=== PATIENT | female | born 1970 | race Caucasian/White ===

== ENCOUNTER 2017-10-08 00:11 | Inpatient (IN) | payer OTHER ==
[~2017-10-08] VITALS: Ht 160 cm; Wt 72.6 kg
[2017-10-08] VITALS (11 sets, daily range): BP systolic 102–139; BP diastolic 54–89
[~2017-10-08 00:11] MED LIST: CALC1TAB32 PO; HYDR12.561 PO; POTA-23 PO; VITA1CAP46 PO
[2017-10-08] MEDS ORDERED: DEXAMETHASONE SOD 4 MG/ML VIAL ONE (10:32)
[2017-10-08] MEDS ORDERED: THROMBIN (BOVINE) 20,000 UNIT VIAL ONE (10:33)
[2017-10-08 13:32] LABS: PLATELET COUNT, AUTOMATED 339 K/uL (150-450)
[2017-10-08] MEDS ORDERED: LIDOCAINE/SOD BICARB 8.4% SYR ID ONE (14:30)
[2017-10-08] MEDS ORDERED: MIDAZOLAM 2 MG/2 ML VIAL IVP PRN (14:30)
[2017-10-08] MEDS ORDERED: FAMOTIDINE 20 MG TAB PO ONE (14:30)
[2017-10-08] MEDS ORDERED: CLINDAMYCIN(*) 900 MG/NS 50 ML 50 ML IVPB ONE (14:30)
[2017-10-08] MEDS ORDERED: NORMOSOL R SOLN(*) 1000 ML BAG 1,000 ML IV PRN (14:30)
[2017-10-08] MEDS ORDERED: PROPOFOL EMUL(*) 10MG/ML 20 ML 60 ML ONE ×2 (15:54→16:38)
[2017-10-08] MEDS ORDERED: SUCCINYLCHOL CHL 200MG/10ML VL ONE (15:54)
[2017-10-08] MEDS ORDERED: fentaNYL CITR 250 MCG/5 ML AMP ONE (15:54)
[2017-10-08] MEDS ORDERED: LABETALOL HCL 100 MG/20ML VIAL ONE (16:24)
[2017-10-08] MEDS ORDERED: fentaNYL CITR 100 MCG/2 ML AMP ONE ×3 (17:33→18:56)
[2017-10-08] MEDS ORDERED: PROPOFOL EMUL(*) 10MG/ML 20 ML 40 ML ONE (17:44)
[2017-10-08] MEDS ORDERED: ONDANSETRON 4 MG/2 ML VIAL ONE (18:13)
[2017-10-08] MEDS ORDERED: HYDROmorphone HCL 2 MG/ML SDV IVP PRN (18:50)
[2017-10-08] MEDS ORDERED: MAGNESIUM HYDROXIDE* 30ML UDCP PO PRN (18:50)
[2017-10-08] MEDS ORDERED: BENZOCAINE/MENTHOL 1 EACH LOZG PO PRN (18:50)
[2017-10-08] MEDS ORDERED: ONDANSETRON 4 MG/2 ML VIAL IVP PRN (18:50)
[2017-10-08] MEDS ORDERED: ACETAMINOPHEN(*)1000 MG/100 ML 100 ML IVPB PRN (18:50)
[2017-10-08] MEDS ORDERED: oxyCODONE HCL 5 MG CAP PO PRN (18:50)
[2017-10-08] MEDS ORDERED: FLUSH 10 ML SYR IVP PRN (18:50)
[2017-10-08] MEDS ORDERED: diphenhydrAMINE 25 MG CAP PO PRN (18:50)
[2017-10-08] MEDS ORDERED: ACETAMINOPHEN 500 MG TAB PO PRN (18:50)
[2017-10-08] MEDS ORDERED: APAP/HYDROCODONE 325/5 TAB PO PRN (18:50)
[2017-10-08] MEDS ORDERED: DIAZEPAM 5 MG TAB PO PRN (18:50)
[2017-10-08] MEDS ORDERED: BISACODYL 10 MG SUPP PR PRN (18:50)
[2017-10-08] MEDS ORDERED: LR(*) 1000 ML BAG 1,000 ML IV PRN (18:50)
--- NOTE | 2017-10-08 19:28 | RADIOLOGY IMAGING REPORT ---
FACILITY: [facility] PATIENT NAME: Irais Caldera : 1970 MR: [id number] V: [id number] EXAM DATE: ORDERING PHYSICIAN: CARI MARSHALL TECHNOLOGIST: Location: [facility] Patient: Irais Caldera : 1970 Visit/Account:[id number] Date of Sevice: 10/08/2017 Examination: 2 view cervical spine Comparison: None. History: C-spine disc herniation. Findings: 2 intraoperative cervical spine lateral radiographs. The initial image at 3:34 PM demonstrates anterior localization of the C5-C6 disc space. The second image at 5:57 PM demonstrates C4-C5 and C5-C6 discectomy and interbody graft placement. IMPRESSION: Cervical spine postoperative change as detailed above. Report Dictated By: Ted Jones MD at 10/08/2017 7:22 PM Report E-Signed By: Ted Jones MD at 10/08/2017 7:24 PM WSN:[id number]
[2017-10-08] MEDS: DOCUSATE SODIUM 100 MG CAP PO SCH (21:07)
[2017-10-08] MEDS ORDERED: ONDANSETRON 4 MG/2 ML VIAL IVP ONE (21:15)
--- NOTE | 2017-10-08 22:39 | OPERATIVE REPORT 1 ---
EVENT DATE: October 08, 2017 SURGEON: Jose Martin Louie MD ANESTHESIOLOGIST: Fareed Garcia MD ANESTHESIA: General endotracheal anesthesia. DIRECTOR OF HOME CARE HOSPICE: BENSON Shirley PREOPERATIVE DIAGNOSIS Cervical radiculopathy secondary to C4-C5 and C5-C6 cervical degenerative disk disease and herniated nucleus pulposus. POSTOPERATIVE DIAGNOSIS Cervical radiculopathy secondary to C4-C5 and C5-C6 cervical degenerative disk disease and herniated nucleus pulposus. PROCEDURE PERFORMED C4-C5 and C5-C6 anterior cervical discectomy and fusion. INTRAVENOUS FLUIDS 1700 mL ESTIMATED BLOOD LOSS 30 mL IMPLANTS 7 mm tall size, small titanium interbody implant from [employer] times two and 3.5 mm x 14 mm fixation screws also from [employer] times four. SPECIMENS None. DRAINS A 10-Omani round Derrick-Johnson drain through the neck. COMPLICATIONS None. DISPOSITION Post-anesthesia care unit. INDICATIONS FOR SURGERY The patient is a 47-year-old female who presented to our clinic with relatively recent onset of severe left upper extremity radiating pain, numbness, tingling, and severe weakness, particularly in shoulder abduction. Her physical examination was significant for 3/5 left deltoid and 4/5 left biceps with 5/5 strength throughout the rest of her muscular distributions. She had decreased sensation in C5 and C6 distributions and a decreased biceps deep tendon reflex on the left as well. Imaging studies showed a massive C4-C5 disk herniation occupying greater than 50% of the canal and compressing the spinal cord. At C5- C6, there was left greater than right neural foraminal narrowing secondary to broad-based disk bulging and a disk osteophyte complex. C6-C7 had an open foramina and no cord contact or compression. Secondary to her severe symptoms and worsening neurologic exam, specifically the severe weakness in the left shoulder, she was offered and elected to undergo C4-C5 and C5-C6 anterior cervical discectomy and fusion. Prior to surgery, I explained in detail to the patient the possible risks of surgery, including the risk of nerve injury, persistent and/or worsening pain, spinal fluid leak, infection, meningitis, excessive bleeding, paralysis, , blindness, sexual dysfunction, blood vessel injury, injury to neighboring organs , need for further surgery, bowel and bladder dysfunction, instability, autonomic nervous system dysfunction, as well as the potential for unforeseen medical and surgical complications. An understanding that in general spinal surgery is more predictive in improving extremity discomfort than actual spine pain and arresting the progression of spinal cord dysfunction rather than improving it was stressed. DESCRIPTION OF PROCEDURE On the day of surgery, the patient was met in the preop hold area, and all questions were answered. The operative site was identified and marked by myself. The patient was then taken to the operating room, and after identification of the patient and the operative site, administration of antibiotics, and completion of anesthesia, the patient was prepped and draped in the supine position on the standard OR bed. During this time and the entire operation, care was taken to maintain appropriate perfusion pressures during anesthesia. All bony protuberances and soft tissues were well padded in the standard fashion. Care was taken to maintain appropriate perfusion pressures during anesthesia. At the conclusion of the procedure, sponge, and instrument counts were correct times two. The risk of junctional degeneration and differences in efficacy between autologous iliac crest bone graft, allograft, and synthetic devices such as the titanium used in the case were discussed, as well as the possibility for further surgery, the risk of nonhealing, instrumentation failure, and chronic pain. Baseline neurophysiologic monitoring was obtained. Prior to surgery, I discussed in detail with the patient the value of electrophysiologic monitoring. The patient understands that at times monitoring may cease to be informative due to the intrinsic disease of the patient's spinal cord or peripheral nerve roots, and not to any intraoperative event. If monitoring is unobtainable or lost in the absence of a correctable maneuver, the patient has given permission for continuation of the operative procedure, understanding that the spinal cord and nerve roots cannot be monitored any further. The surgeon in this situation is blinded to any adverse changes in neural function and is unable to make any corrective maneuvers to alter this course. The patient understands that upon awakening from anesthesia, she may be paralyzed or experience worsening of neurologic function. Throughout the procedure, there were no significant changes in neurophysiologic monitoring. Prior to surgery, the patient was counseled further as to the possible adverse consequences of or relating to anterior cervical surgery, including swallowing difficulties with possible need for tube feeding, recurrent and/or superior laryngeal nerve root injury, esophageal injury, voice changes, and hoarseness. The shoulders were loosely secured at the side to afford access to the anterior cervical spine. A final timeout was undertaken by members of the operating team to confirm correct patient, correct levels, and correct surgery. A transverse incision was then made on the left side of the anterior cervical spine. Sharp dissection was taken through the skin and subcutaneous tissue at the level of the platysma, which was divided. Blunt dissection was taken medial to the sternocleidomastoid muscle. A finger was used to palpate the carotid pulse and to find the carotid artery. Blunt dissection was then utilized through the pretracheal fascia down to the retropharyngeal space where the anterior cervical spine was palpated. An intraoperative x-ray was taken to confirm the appropriate level of exposure. Soft tissues including the longus colli muscles anterior to the spinal elements were elevated in a subperiosteal manner. Retractors were then placed and distracted. A knife was used to incise the annulus fibrosus of the C4-C5 disk, and a pituitary rongeur was used to remove the outer annulus and nucleus pulposus. Remaining annular nuclear material was removed from ventral to dorsal across the disk space and out the width of the uncovertebral joints bilaterally. Progressively smaller curettes were used to approach the posterior disk space. At this point, Cloward spreaders were placed with distraction applied to the disk to allow access to the posterior aspect of the interbody space. There was no change in neurophysiologic monitoring. With a 3.0 curette, the posterior annulus was removed, and the posterior longitudinal ligament was identified. Uncovertebral resection was performed with a high-speed bur, followed by 2 mm Kerrison punch across the medial aspect of the uncovertebral joints bilaterally. The posterior longitudinal ligament was removed by dissecting through its layers with a small curette and a nerve hook and then removing it with the 1 and 2 mm Kerrison punches. The remaining posterior osteophytes were carefully removed with the curved curette and a 1 mm Kerrison. The spinal cord and nerve roots were well decompressed, and at the completion of the decompression, a nerve hook was passed behind the vertebral bodies and out the neural foramina to confirm complete decompression at the disk space and the entry zone of the foramina. Complete hemostasis was obtained and confirmed with multiple Valsalva maneuvers. Once this was completed, a #6 and then a #7 rasp was inserted in the disk space. Great care was taken to ensure bleeding on the endplates of the inferior body of C4 and the superior body of C5. A 7 mm high lordotic size small spacer was chosen. This was inserted under direct visualization and countersunk about 0.5 mm. The awl was used through the integrated holes in the interbody device to punch through the subchondral bone. Fixation screws were then placed both up and down into C4 and C5 respectively. Attention was then turned to the C5-C6 disk space. The discectomy was repeated in an identical fashion to the C4-C5 level, and a size 7 interbody spacer was again chosen. Endplates were again properly prepared to ensure bleeding across both surfaces, and then a size 7 small implant was placed at the C5-C6 level. We again utilized the awl to punch through the vertebral endplates and placed 14 mm x 3.5 mm screws into the C5 and C6 vertebral bodies. The wound was irrigated with copious sterile saline solution , and a lateral radiograph was obtained to confirm appropriate positioning of the instrumentation. Meticulous hemostasis was obtained, and the wound was then closed in layers using interrupted sutures for the platysma, inverted interrupted sutures for the subcutaneous tissue, and then a running subcuticular skin stitch. A 10-Omani round Derrick-Johnson drain was left deep to the platysma. Sponge and instrument counts were correct times two. POSTOPERATIVE CARE PLAN The patient will remain in the hospital overnight with head of bed elevated greater than 30 degrees. She will be discharged home on postop day one with followup planned for two weeks for wound check and examination. IMELDA
[2017-10-08] MEDS: CLINDAMYCIN(*) 900 MG/NS 50 ML 50 ML IVPB SCH (23:55)
[2017-10-09] VITALS: BP 113/68
[2017-10-09 02:50] VITALS: BP 124/87
[2017-10-09 07:37] VITALS: BP 150/87
[2017-10-09] MEDS: CLINDAMYCIN(*) 900 MG/NS 50 ML 50 ML IVPB SCH (07:48)
[2017-10-09] MEDS ORDERED: ONDA4TAB97 PO (08:00)
[2017-10-09] MEDS ORDERED: DOCU240C84 PO (08:00)
[2017-10-09] MEDS ORDERED: OXYC-865 PO (08:01)
[2017-10-09] MEDS: DOCUSATE SODIUM 100 MG CAP PO SCH (08:54)
--- NOTE | 2017-10-09 09:05 | RADIOLOGY IMAGING REPORT ---
FACILITY: [facility] [place] PATIENT NAME: Irais Caldera : 1970 MR: [id number] V: [id number] EXAM DATE: ORDERING PHYSICIAN: CARI MARSHALL TECHNOLOGIST: Location: [facility] [place] Patient: Irais Caldera : 1970 Visit/Account:[id number] Date of Sevice: 10/09/2017 CERVICAL SPINE 2 OR 3 VIEW Indication: s/p operation Comparison: Cervical spine radiograph 10/08/2017 Findings: There are postoperative changes from anterior cervical discectomy and C4-5 and C5-6, with i nterdisc spacers. Alignment is maintained. Facets are normal. IMPRESSION: Postoperative changes from anterior cervical discectomy and hardware at C4-5 and C5-6. Report Dictated By: Brooks Pelletier at 10/09/2017 8:59 AM Report E-Signed By: Brooks Pelletier at 10/09/2017 9:00 AM WSN:[id number]
== END 2017-10-09 09:15 | disposition home or self-care (01) | DRG 472 ==
LOC: OR 00:11 → MED 19:40
PROVIDERS: ADMIT Orthopaedic Surgery; ATTEND Orthopaedic Surgery
PROC: 0RT30ZZ Resection of Cervical Vertebral Disc, Open Approach (ICD-10-PCS; 2017-10-08)
PROC: 0RG20A0 Fusion of 2 or more Cervical Vertebral Joints with Interbody Fusion Device, Anterior Approach, Anterior Column, Open Approach (ICD-10-PCS; principal; 2017-10-08 15:44)
DX: M50.121 Cervical disc disorder at C4-C5 level with radiculopathy (principal); M50.021 Cervical disc disorder at C4-C5 level with myelopathy; I10 Essential (primary) hypertension; Z88.0 Allergy status to penicillin; Z90.49 Acquired absence of other specified parts of digestive tract
CPT/HCPCS: 36415; 72020; 72040; 84703; 85025; 97161; J0131; J0330; J1100; J1170; J2250; J2405; J2704; J3010; J3490; J7120